=== PATIENT | female | born 1950 | race Caucasian/White ===

== ENCOUNTER → 2021-06-18 | Outpatient (CLI) | payer MEDICARE ==
[~2021-06-18] MED LIST: BENICAR40 MG PO; HORIZANT600 MG PO; NEXIUM40 MG PO; SINGULAIR10 MG PO; WELLBUTRIN XL300 MG PO; [UNRECOGNIZED DRUG - OTHER] PO
== END ==
LOC: RAD 13:51
PROVIDERS: ATTEND Internal Medicine
DX: M17.12 Unilateral primary osteoarthritis, left knee (principal)

== ENCOUNTER → 2025-02-11 | Outpatient (REF) | payer MEDICARE | LOC: US 08:41 | PROVIDERS: ATTEND Internal Medicine | DX: R10.11 Right upper quadrant pain (principal) | CPT/HCPCS: 76705 ==

== ENCOUNTER → 2025-03-14 | Outpatient (REF) | payer MEDICARE ==
[~2025-03-14] MED LIST changes: +SINCALIDE 5 MCG VIAL IJ ONE; +WATER STERILE 10 ML VIAL ONE
== END ==
LOC: NM 12:37
PROVIDERS: ATTEND Internal Medicine
DX: K80.20 Calculus of gallbladder without cholecystitis without obstruction (principal)
CPT/HCPCS: 78227; A9537